=== PATIENT | male | born 1970 | race Caucasian/White ===

== ENCOUNTER → 2017-11-29 08:38 | Outpatient (CLI) | payer OTHER, SELFPAY ==
[2017-11-29 12:35] LABS: Hemoglobin A1c 5.3 % (4.2-6.3); PSA,Total - Annual Screen 0.55 ng/mL (0.00-4.00); T4 Free Direct 0.93 ng/dL (0.76-1.46)
== END ==
PROVIDERS: Family Provider Family Medicine; PCP Family Medicine; Visit Provider Family Medicine
DX: E78.5 Hyperlipidemia, unspecified (principal); R73.01 Impaired fasting glucose; Z80.42 Family history of malignant neoplasm of prostate; Z12.5 Encounter for screening for malignant neoplasm of prostate
CPT/HCPCS: 36415; 83036; 84153; 84439; 84443; G0103

== ENCOUNTER → 2018-11-28 09:52 | Outpatient (CLI) | payer OTHER, SELFPAY ==
[2018-11-30 13:07] LABS: PSA,Total - Annual Screen 0.63 ng/mL (0.00-4.00); T4 Free Direct 0.96 ng/dL (0.76-1.46); Thyroid Stim Hormone (TSH) 1.75 uIU/mL (0.358-3.74)
== END ==
LOC: BFHLAB 09:53 → LAB.FUTURE 10:08
PROVIDERS: Family Provider Family Medicine; PCP Family Medicine; Visit Provider Family Medicine
DX: E78.5 Hyperlipidemia, unspecified (principal); Z80.42 Family history of malignant neoplasm of prostate
CPT/HCPCS: 36415; 84153; 84439; 84443; G0103

== ENCOUNTER 2019-02-03 18:01 | Emergency (ER) | payer OTHER, SELFPAY ==
[2019-02-03 18:03] VITALS: BP 167/103; PULSE 74; RESP 16; TEMP 36.7; O2SAT 96; BMI 29.8
--- NOTE | 2019-02-03 18:21 | ED.DCSUM_ITS ---
- ER Visit Summary Date of Service: 02/03/19 Chief Complaint: Epistaxis History of Present Illness: The patient is a 48 M who presents with epistaxis that began today. Patient states the bleeding came from his right nares. Patient states he blew his nose and then noted the blood from his right nares after that. Patient denies any trauma. Patient states he was unable to get the bleeding to stop. Patient denies any headaches. Patient admits to some recent upper respiratory congestion and a mild sore throat. Patient denies any chest pain or shortness of breath. Physical Examination: Vital signs are stable. Patient is afebrile. Patient is in no acute distress. There is some mild bleeding from the right nares. There is some blood noted in the right anterior nasal septum. The left nares has slight amount of blood. Oropharynx shows some mild bleeding from the nasophar ynx. Neck is supple. Trachea is midline. There is no JVD. Heart was regular rate and rhythm. Lungs are clear and equal bilaterally. Cranial nerves II through XII are intact. There are no focal motor or sensory deficits noted. Emergency Department Course and Treatment: Nasal clip was applied. Patient still had persistent bleeding. Afrin and topical lidocaine were mixed and placed in the patient's right nares on gauze pads. Bleeding slowed down. A 5 cm anterior rapid Rhino balloon pack was placed in the right nares. Patient was observed. Bleeding stopped after this. Patient was feeling better on reevaluation. Patient was instructed to follow-up with Dr. Mahmood who is on- call for ENT in 1 to 2 days. Patient and family understood and was agreeable with the plan. All questions were answered. Disposition: Discharge home Impression: Epistaxis This note was generated with [employer] dictation software. It may contain incorrect words, spelling, and punctuation that were not noted in review of the chart prior to signing ED Disposition - Plan for ED Patient: Disposition: Home or Assisted Living Diagnosis: Anterior epistaxis Instructions: Nosebleed Referrals: Fili Ocasio MD [Primary Care Provider] - Sebastian Mahmood MD [STAFF PHYSICIAN] - As soon as possible
[2019-02-03 21:07] VITALS: BP 148/102; PULSE 53; RESP 16
[2019-02-03] MEDS: Oxymetazoline 0.05% 1 SPRAY SPRAY.BTL NASAL (21:21)
[2019-02-03] MEDS: Lidocaine 4% 50 ML Bottle TOPICAL (21:21)
== END 2019-02-03 21:08 | disposition home or self-care (01) ==
PROVIDERS: Emergency Provider Emergency Medicine; Family Provider Family Medicine; PCP Family Medicine
DX: R04.0 Epistaxis (principal)
CPT/HCPCS: 30901; 99282

== ENCOUNTER → 2019-11-13 17:59 | Outpatient (CLI) | payer OTHER, SELFPAY | PROVIDERS: PCP Family Medicine; Referring Provider Family Medicine; Visit Provider Family Medicine | DX: Z20.828 Contact with and (suspected) exposure to other viral communicable diseases (principal) | CPT/HCPCS: 87635; 94799; U0003 ==

== ENCOUNTER → 2020-07-10 11:00 | Outpatient (CLI) | payer OTHER, SELFPAY ==
[2020-07-10 11:49] LABS: PSA,Total - Annual Screen 0.63 ng/mL (0.00-4.00)
== END ==
PROVIDERS: PCP Family Medicine; Visit Provider Family Medicine
DX: Z00.00 Encounter for general adult medical examination without abnormal findings (principal); Z80.42 Family history of malignant neoplasm of prostate
CPT/HCPCS: 36415; 84153; G0103

== ENCOUNTER → 2024-07-04 | Outpatient (CLI) | payer BC, SELFPAY ==
[2024-07-04 18:02] LABS: Absolute Lymphocyte Count 2.23 X10^3/uL (0.83-4.51); Absolute Neutrophil Count 3.3 X10^3/uL (2.0-7.7); Basophil# 0.04 X10^3/uL; Basophil% 0.6 % (0-1); Eosinophil# 0.09 X10^3/uL; Eosinophils% 1.4 % (0-5); Hematocrit 44.9 % (40-54); Hemoglobin 15.1 g/dL (13.0-16.5); Lymphocyte # 2.23 X10^3/ul (0.83-4.51); Lymphocyte % 35.2 % (19-41); Mean Corp Hgb Conc 33.6 g/dL (32-36); Mean Corpuscular Hgb 30.1 pg (27.0-32.0); Mean Corpuscular Volume 89.6 fL (80-94); Mean Platelet Vol. 9.5 fl (6.2-12.0); Monocyte# 0.62 X10^3/uL; Monocyte% 9.8 % (0-10); NRBC Flagged by Analyzer 0 % (0-5); Neutrophil # 3.33 X10^3/uL (2.7-7.7); Neutrophil % 52.7 % (47-70); Platelet Count 214 K/mm3 (150-450); RBC Distribution Width CV 12.7 % (11.6-14.6); RBC Distribution Width SD 41.4 fl (35.1-43.9); Red Blood Count 5.01 M/mm3 (4.6-6.2); White Blood Count 6.3 K/mm3 (4.4-11.0)
[2024-07-04 18:35] LABS: ALB/GLOB Ratio 1.6 RATIO (0.9-2.4); AST(SGOT) 24 U/L (<=37); Alanine Aminotransfer ALT/SGPT 33 U/L (<=46); Albumin, Serum 4.5 g/dL (3.5-5.0); Alkaline Phosphatase 70 U/L (40-129); Anion Gap 14 (5-15); BUN 19 mg/dL (4-19); Calcium,Total 9.4 mg/dL (7.6-11.0); Carbon Dioxide 21.8 mmol/L (21.0-32.0); Chloride 104 mmol/L (98-108); Cholesterol 250 mg/dL (<=200); Creatinine, Serum 0.98 mg/dL (0.70-1.20); EST Glomerular Filtration Rate 91 (>60); Globulin 2.9 g/dL (2.2-4.2); Glucose 97 mg/dL (70-99); High Density Lipoprotein 64 mg/dL; Low Density Lipoprotein Calc. 151 mg/dL; Magnesium 2.2 mg/dL (1.5-2.2); PSA,Total - Annual Screen 0.58 ng/mL (0.02-4.00); Protein, Total 7.3 g/dL (5.9-8.4); Sodium Level 140 mmol/L (133-145); Total Bilirubin 0.35 mg/dL (0.00-1.30); Triglycerides 177 mg/dL; Very Low Density Lipoprotein 35 mg/dL (5-40)
[2024-07-08 17:07] LABS: Anti-Thyroglobulin AB < 1.0 IU/mL (0.0-0.9); Thyroglobulin, Serum Qt. 17.2 ng/mL (1.4-29.2); Thyroid Peroxidase AB < 9 IU/mL (0-34)
== END | disposition home or self-care (01) ==
LOC: MFPLAB 15:32
PROVIDERS: PCP Family Medicine; Referring Provider Family Medicine; Visit Provider Family Medicine
DX: I10 Essential (primary) hypertension (principal); Z80.42 Family history of malignant neoplasm of prostate; E04.1 Nontoxic single thyroid nodule
CPT/HCPCS: 36415; 80053; 80061; 83735; 84153; 84432; 84439; 84443; 85025; 86376; 86800; G0103

== ENCOUNTER → 2024-07-15 | Outpatient (CLI) | payer BC, SELFPAY ==
--- NOTE | 2024-07-15 12:49 | US_ITS ---
PROCEDURE: THYROID (USTHY), 07/15/2024 REASON FOR EXAM: NODULE TECHNIQUE: Grayscale and color Doppler imaging of the thyroid was performed. COMPARISON: None FINDINGS: Right lobe measures 5.8 x 1.9 x 2.0cm. Essentially homogeneous background echotexture. No abnormal vascularity. Nodules as below: *9 x 9 x 6 mm, mixed cystic and solid, isoechoic solid components, TI-RADS 2. Left lobe measures 5.7 x 2.1 x 2.0 cm. Essentially homogeneous background echotexture. No abnormal vascularity. No solid or mostly solid nodules are identified. Isthmus measures 4 mm in thickness. US/Thyroid IMPRESSION: 1. Assessment is TI-RADS 2, not suspicious. No nodules meet criteria for FNA o r follow-up. 2. High-normal size gland with essentially unremarkable background echotexture. No abnormal vascularity. Management recommendations for TI-RADS 2 findings: Not Suspicious: No FNA. Clin cial follow-up recommended. Recommendations per ACR Thyroid Imaging, Reporting and Data System (TI-RADS): [employer] Paper of the ACR TI-RADS Committee, 2017 ([email or web address]) Reading Location: [id number]
== END | disposition home or self-care (01) ==
PROVIDERS: PCP Family Medicine; Referring Provider Family Medicine; Visit Provider Family Medicine
DX: E04.1 Nontoxic single thyroid nodule (principal)
CPT/HCPCS: 76536